=== PATIENT | female | born 1950 | race Caucasian/White ===

== ENCOUNTER 2022-06-02 13:14 | Inpatient (IN) | payer OTHER ==
[~2022-06-02 13:14] MED LIST: Levofloxacin 750mg IV 750 MG/150 ML BAG IV SCH
--- OUTSIDE RECORDS SUMMARY | 2022-06-02 13:18 | XMS REPORT | Continuity of Care Document ---
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) (disorder) Active Problem 04/28/2022 [facility] Dysphagia Dysphagia Problem Active 2022-04-28 Memoria (disorder) (disorder) 05:05:19 l Active Dank Problem 04/28/2022 [facility] History of History Problem Active 2022-04-28 Memoria - CVA of - CVA 05:05:19 l (context-d (context-d He rmann ependent ependent category) category) Active Problem 04/28/2022 [facility] Hypertensi Problem Active 2022-04-28 Gila kim ve Hypertensi 05:05:19 l disorder, ve Dank systemic disorder, arterial systemic (disorder) arterial (disorder) Active Problem 04/28/2022 [facility] Hyperlipid Problem Active 2022-04-28 Gila lema Hyperlipid 05:05:19 l (disorder) emia Yrn n (disorder) Active Problem 04/28/2022 [facility] Pancreatic Pancreati Problem Active 2022-04-28 Memoria insufficie c 05:05:19 l ncy insufficie Yrn n (disorder) ncy (disorder) Active Problem 04/28/2022 [facility] Stricture Stricture Problem Active 2022-04-28 Memoria of of 05:05:19 l esophagus esophagus Herm lisa (disorder) (disorder) Active Problem 04/28/2022 [facility] Tremor Tremor Problem Active 2022-04-28 Alton alonzo (finding) (finding) 05:05:19 l Active Dank Problem 04/28/2022 [facility] Allergies, Adverse Reactions, Alerts Allergy Allergy Status Severity Reaction(s) Onset Inactive Treating Comm ents Source Name Type Date Date Clinician penicill penicill Active Memori a ins ins l [place] Social History Smoking Status Start Date Stop Date Source Tobacco smoking status [facility] Medications Ordered Filled Start Stop Current Ordering Indication Dosage Frequency Signature Comments Components Source Medication Medication Date Date Medication? Clinician (SIG) Name Name primidone 2021-07 Yes 50 mg = 1 Mem oria 50 mg oral 0-26 tab, PO, l tablet 16:39: Bedtime, # Millie nn 00 90 tab, 1 Refill(s), Pharmacy: [facility] ([facility]), 165.1, cm, 04/25/22 11:19:00 CDT, Height, 89.545, kg, 04/25/22 11:19:00 CDT, Weight Zenpep Yes 1 cap, PO, Memor ia 10,000 9-14 TID, 0 l units-32,00 18:45: Refill(s) H ermann 0 00 units-42,00 0 units oral delayed release capsule gabapentin Yes = 1 cap, Mem oria 300 mg oral 4-28 PO, BID, # l capsule 13:36: 180 Dank 00 unknown unit, 3 Refill(s), Pharmacy: [facility], 165.1, cm, 03/30/20 8:40:00 CDT, Height, 93.636, kg, 03/30/20 8:40:00 CDT, Weight gabapentin Yes 300 mg = 1 M emoria 300 MG Oral 9-10 cap, PO, l Capsule 13:34: BID, # 180 Herm lisa 00 cap, 2 Refill(s), Pharmacy: [facility], 165.1, cm, 02/17/20 9:12:00 CDT, Height, 93.182, kg, 02/17/20 9:12:00 CDT, Weight Lorazepam 2019- Yes See Memoria 0.5 MG Oral 8-19 Instructio l Tablet 15:03: ns, Take 1 Millie nn [Ativan] 00 tab po 1 hour prior to MRI, may repeat q 15 min. if still anxious, # 5 tab, 0 Refill(s), Pharmacy: [id number], 165.1, cm, 02/17/20 9:12:00 CDT, Height, 93.182, kg, 02/17/20 9:12:00 CDT, Weight gabapentin 2018-07 Yes 300 mg = 1 M emoria 300 MG Oral 1-20 cap, PO, l Capsule 15:34: BID, # 180 Herm lisa 59 cap, 2 Refill(s), Pharmacy: [place] [id number] gabapentin 2018-0 Yes 300 mg = 1 M emoria 300 MG Oral 5-22 cap, PO, l Capsule 14:37: BID, # 180 Herm lisa 24 cap, 2 Refill(s), Pharmacy: [place] [id number] aspirin 81 2019-0 Yes 81 mg = 1 Me moria mg tablet, 3-19 tab, PO, l enteric 14:48: Daily, # Yrn n coated 00 90 tab, 3 Refill(s) meloxicam 2018-0 Yes 15 mg = 1 Mem oria 15 mg oral 2-14 tab, PO, l tablet 20:13: Daily, 0 Dank 00 Refill(s) oxybutynin 2018-0 Yes 5 mg = 1 Mem oria 5 mg oral 2-14 tab, PO, l tablet 20:13: TID, 0 Dank 00 Refill(s) simvastatin 2018-0 Yes 40 mg = 1 M emoria 40 mg oral 2-14 tab, PO, l tablet 20:13: Bedtime, 0 Millie nn 00 Refill(s) Vital Signs Vital Name Observation Time Observation Value Comments Source Height 2022-04-25 16:11:00 5 [ft_i] [facility] [place] Weight 2022-04-25 16:11:00 [facility] [place] BMI Calculated 2022-04-25 16:11:00 Memori al Dank Systolic (mm Hg) 2022-04-25 16:11:00 Alton rial [place] Diastolic (mm Hg) 2022-04-25 16:11:00 Mem orial Dank Heart Rate 2022-04-25 16:11:00 [facility] [place] Height 2022-03-14 18:23:00 165.1 cm [facility] [place] Weight 2022-03-14 18:23:00 [facility] [place] BMI Calculated 2022-03-14 18:23:00 Memori al Dank Systolic (mm Hg) 2022-03-14 18:23:00 Alton rial Dank Diastolic (mm Hg) 2022-03-14 18:23:00 Mem orial Dank Heart Rate 2022-03-14 18:23:00 [facility] [place] Respitory Rate 2022-03-14 18:23:00 Memori al [place] Systolic (mm Hg) 2020-03-30 13:40:00 Alton rial [place] Diastolic (mm Hg) 2020-03-30 13:40:00 Mem orial Dank Heart Rate 2020-03-30 13:40:00 [facility] [place] Respitory Rate 2020-03-30 13:40:00 Memori al [place] Height 2020-03-30 13:40:00 165.1 cm [facility] [place] Weight 2020-03-30 13:40:00 [facility] [place] BMI Calculated 2020-03-30 13:40:00 Memori al [place] Systolic (mm Hg) 2020-02-17 13:47:00 Alton rial [place] Diastolic (mm Hg) 2020-02-17 13:47:00 Mem orial Dank Heart Rate 2020-02-17 13:47:00 [facility] [place] Height 2020-02-17 13:47:00 165.1 cm [facility] [place] Weight 2020-02-17 13:47:00 [facility] [place] BMI Calculated 2020-02-17 13:47:00 Memori al Dank Systolic (mm Hg) 2019-05-20 15:07:00 Alton rial Dank Diastolic (mm Hg) 2019-05-20 15:07:00 Mem orial Dank Heart Rate 2019-05-20 15:07:00 [facility] [place] Respitory Rate 2019-05-20 15:07:00 Memori al [place] Height 2019-05-20 15:07:00 165.1 cm [facility] [place] Weight 2019-05-20 15:07:00 [facility] Dank BMI Calculated 2019-05-20 15:07:00 Memori al Dank Weight 2018-11-19 14:22:00 [facility] [place] BMI Calculated 2018-11-19 14:22:00 Memori al Dank Height 2018-11-19 14:22:00 165.1 cm [facility] [place] Systolic (mm Hg) 2018-11-19 14:22:00 Alton rial Dank Diastolic (mm Hg) 2018-11-19 14:22:00 Mem orial [place] Respitory Rate 2018-11-19 14:22:00 Memori al [place] Heart Rate 2018-11-19 14:22:00 [facility] [place] Procedures This patient has no known procedures. Encounters Start End Encounter Admission Attending Care Care Encounter Source Date/Time Date/Time Type Type Clinicians Facility Department ID 2022-06-07 2022-06-07 Outpatient STAR GRAVES [id number] Memoria 11:00:00 11:00:[address] [facility] 2022-04-25 2022-04-26 Outpatient nullFlavo [facility] [id number] Memoria 16:30:00 04:59:59 [facility]22-04-[facility] 2022-04-25 [id number] 11:30:00 23:59:59 Storm 09 Thor 2022-04-25 2022-04-25 Outpatient STAR GRAVES [id number] Memoria 11:30:00 11:30:[address] [facility] 2022-03-26 2022-03-27 Outpatient nullFlavo [facility] [id number] Memoria 15:06:00 04:59:00 r Dank 00 l [facility] 2022-03-26 2022-03-26 Outpatient CHARLI [facility] [id number] [id number] 10:06:00 23:59:00 STORM 2022-03-26 2022-03-26 Outpatient Charli [facility] [id number] 10:06:00 23:59:00 Storm 00 Thor 2022-03-14 2022-03-15 Outpatient nullFlavo MNA [id number] Memoria 19:15:00 04:59:59 r Neurology 08 l Sumner Dank 2022-03-14 2022-03-14 Outpatient BRIDGETTE AugustinSCHER MHMISCHER [id number] 14:15:00 23:59:59 Storm 08 Thor 2022-03-14 2022-03-14 Outpatient MHIE MHIE [id number] Memoria 14:15:00 14:15:00 08 keerthi Dank 2020-07-05 2020-07-05 Ambulatory nullFlavo MNA [id number] Memoria 15:15:00 15:15:00 Pre-Reg r Neurology 07 l Mike Weems 2020-07-05 2020-07-05 Outpatient MHIE JACOBIE [id number] Memoria 09:15:00 09:15:00 07 keerthi Dank 2020-07-05 2020-07-05 Outpatient BRIDGETTE AugustinSCHER MHMISCHER [id number] 09:15:00 09:15:00 Storm 07 Thor 2020-03-30 2020-03-31 Outpatient nullFlavo MNA [id number] Memoria 14:00:00 04:59:59 r Neurology 06 l Mike Weems 2020-03-30 2020-03-30 Outpatient BRIDGETTE AugustinSCHER MHMISCHER [id number] 09:00:00 23:59:59 Storm 06 Thor 2020-03-30 2020-03-30 Outpatient MHIE MHIE [id number] Memoria 09:00:00 09:00:00 06 keerthi Dank 2020-02-17 2020-02-18 Outpatient nullFlavo MNA [id number] Memoria 14:00:00 04:59:59 r Neurology 05 l Mike Weems 2020-02-17 2020-02-17 Outpatient BRIDGETTE AugustinSCHER MHMISCHER [id number] 09:00:00 23:59:59 Storm 05 Thor 2020-02-17 2020-02-17 Ambulatory nullFlavo MNA [id number] Memoria 14:00:00 14:00:00 Pre-Reg r Neurology 04 keerthi Sumner Dank 2020-02-17 2020-02-17 Outpatient MHIE MHIE [id number] Memoria 09:00:00 09:00:00 04 keerthi Dank 2020-02-17 2020-02-17 Outpatient MHIE MHIE [id number] Memoria 09:00:00 09:00:00 05 keerthi Weems 2020-02-17 2020-02-17 Outpatient Charli MHMISCHER MHMISCHER [id number] 09:00:00 09:00:00 Storm 04 Thor 2019-05-20 2019-05-21 Outpatient nullFlavo MNA [id number] Memoria 15:15:00 05:59:59 r Neurology 03 keerthi Mike Weems 2019-05-20 2019-05-20 Outpatient Charli MISCHER MHMISCHER [id number] 09:15:00 23:59:59 Storm 03 Thor 2019-05-20 2019-05-20 Outpatient MHIE MHIE [id number] Memoria 09:15:00 09:15:00 03 keerthi Weems 2018-11-19 2018-11-20 Outpatient nullFlavo MNA [id number] Memoria 14:30:00 04:59:59 r Neurology 02 keerthi Mike Weems 2018-11-19 2018-11-19 Outpatient Charli MHMISCHER MHMISCHER [id number] 09:30:00 23:59:59 Storm 02 Thor 2018-11-19 2018-11-19 Outpatient MHIE MHIE [id number] Memoria 09:30:00 09:30:00 02 keerthi Weems 2018-09-16 2018-09-16 Outpatient MHIE MHIE [id number] Memoria 10:00:00 10:00:00 01 keerthi Weems 2017-08-14 2017-08-14 Outpatient MHIE MHIE [id number] Memoria 14:30:00 14:30:00 00 keerthi Weems Results This patient has no known results.
[2022-06-02] MEDS ORDERED: NA CHLORIDE 0.9% 500 ML ONE ×2 (14:46→17:52)
[2022-06-02] MEDS ORDERED: ACETAMINOPHEN 325 MG TABLET ONE (14:46)
[2022-06-02 14:54] LABS: Protime INR 1.21
[2022-06-02 14:58] LABS: Absolute Lymphocytes (CBC) 0.7 K/uL (0.7-4.9); Hematocrit 40.3 % (36.0-45.0); Lymphocytes % 4.6 % (15.3-44.8); MCV 84.6 fL (80-100); MPV 7.6 fL (7.6-11.3); RBC Red Blood Cell Count 4.76 M/uL (3.86-4.86)
[2022-06-02 15:06] LABS: Bilirubin Direct 0.3 mg/dL (0-0.2); Bilirubin Total 0.7 mg/dL (0.2-1.0); Magnesium 2.2 mg/dL (1.8-2.4); Potassium 3.1 mmol/L (3.5-5.1); Protein, Total 7.5 g/dL (6.4-8.2); Troponin High Sensitivity 53.2 pg/mL (<58.9)
--- NOTE | 2022-06-02 15:48 | RAD REPORT ---
EXAM DESCRIPTION: Paul Single View06/02/2022 3:12 pm CLINICAL HISTORY: Shortness of breath COMPARISON: 2014 FINDINGS: The lungs appear clear of acute infiltrate. The heart is normal size IMPRESSION: No acute abnormalities displayed
[2022-06-02 18:04] LABS: Urine Blood 2+ (Negative); Urine Glucose Negative (Negative); Urine Protein 2+ (Negative); Urine Specific Gravity 1.025 (1.005-1.030)
[2022-06-02 18:44] LABS: SARS-COV-2 RT PCR NEGATIVE (NEGATIVE)
[2022-06-02] MEDS ORDERED: Levofloxacin 750mg IV 750 MG/150 ML BAG IV ONE ×2 (18:49→21:00)
[2022-06-02] MEDS ORDERED: NA CHLORIDE 0.9% 2,000 ML ONE (18:49)
--- NOTE | 2022-06-02 19:15 | P.HP ---
Certification for Inpatient Patient admitted to: Observation With expected LOS: <2 Midnights Patient will require the following post-hospital care: None Practitioner: I am a practitioner with admitting privileges, knowledge of patient current condition, hospital course, and medical plan of care. Services: Services provided to patient in accordance with Admission requirements found in Title 42 Section 412.3 of the Code of Federal Regulations Patient History Date of Service: 06/02/22 Primary Care Provider: Mac Reason for admission: UTI, Dehydration History of Present Illness: Patient is a 71 year old female with past medical history of hypertension and hyperlipidemia who presented to the ED with complaints of nausea, vomiting, and back pain. Patient reports that her symptoms began about 3 days ago, and she ended up having a syncopal episode last night. She states that her blood pressure does run low chronically but gets lower when she is sick. Her labs are significant for potassium 3.1, BUN 27, WBC 15 with left shift, urine positive for UTI. COVID/flu negative. She was initially febrile and tachycardic, but have since resolved. She was given levaquin, tylenol, and fluids in the ED. Patient is admitted for further management. Allergies Penicillins Allergy (Verified 02/07/15 02:44) Anaphylaxis Home medications list reviewed: Yes Home Medications: Duloxetine HCl 60 mg PO DAILY 02/07/15 Gabapentin [Neurontin] 600 mg PO TID 02/07/15 Lisinopril [Zestril] 10 mg PO DAILY #30 tablet 02/07/15 Oxybutynin Chloride [Ditropan*] 5 mg PO BID 02/07/15 Simvastatin [Zocor*] 40 mg PO BEDTIME 02/07/15 - Past Medical/Surgical History Diabetic: No -: HTN -: HIGH CHOLESTEROL -: NERVE DAMAGE R FOOT -: HYSTERECTOMY -: JO EYE SX -: JO KNEE SX -: TONSILLECTOMY Psychosocial/ Personal History: Patient lives at home. She has a daughter. - Family History Mother -: Stroke, Other (see notes) Notes: Parkinson's - Social History Smoking Status: Never smoker Alcohol use: Yes CD- Drugs: No Caffeine use: Yes Place of Residence: Home Review of Systems Gastrointestinal: Nausea, Vomiting Musculoskeletal: Back Pain Physical Examination - Vital Signs Temperature: 101.6 F Blood Pressure: 94/51 Pulse: 84 Respirations: 16 Pulse Ox (%): 100 (room air) - Physical Exam General: Alert, In no apparent distress HEENT: Atraumatic, PERRLA, EOMI, Sclerae nonicteric Neck: Supple, 2+ carotid pulse no bruit, No LAD, Without JVD or thyroid abnormality Respiratory: Clear to auscultation bilaterally, Normal air movement Cardiovascular: Regular rate/rhythm, Normal S1 S2 Gastrointestinal: Normal bowel sounds, No tenderness Musculoskeletal: No tenderness Integumentary: No rashes Neurological: Normal speech, Normal strength at 5/5 x4 extr, Normal tone, Normal affect - Studies Laboratory Data (last 24 hrs) 06/02/22 14:29: PT 13.3 H, INR 1.21 06/02/22 14:29: WBC 15.30 H, Hgb 13.5, Hct 40.3, Plt Count 273 06/02/22 14:29: Sodium 138, Potassium 3.1 L, BUN 27 H, Creatinine 1.13, Glucose 142 H, Magnesium 2.2, Total Bilirubin 0.7, AST 22, ALT 25, Alkaline Phosphatase 112 Assessment and Plan - Problems (Diagnosis) (1) UTI (urinary tract infection) Current Visit: Yes Status: Acute Qualifiers: Urinary tract infection type: acute cystitis Hematuria presence: with hematuria Qualified Code(s): N30.01 - Acute cystitis with hematuria (2) Dehydration Current Visit: Yes Status: Acute (3) Sepsis Current Visit: Yes Status: Acute Qualifiers: Sepsis type: sepsis due to unspecified organism Sepsis acute organ dysfunction status: without acute organ dysfunction Qualified Code(s): A41.9 - Sepsis, unspecified organism (4) Hypokalemia Current Visit: Yes Status: Acute - Plan Continue levaquin for UTI. Follow urine culture. Patient is meeting sepsis criteria with fever, tachycardia, leukocytosis. Blood cultures obtained. Lactate negative. Received sepsis fluid bolus. BP has been borderline. Monitor closely. Will continue maintenance IV fluids. Symptoms could also be secondary to a viral gastroenteritis with hypokalemia. Patient denies urinary symptoms. Supportive measures with IV hydration, anti emetics, analgesics. Monitor and replete electrolytes per protocol. Reconcile and continue home medications. VTE prophylaxis . Full code. Patient's daughter, Tessie, can be reached at [phone] Discharge Plan: Home Plan to discharge in: 24 Hours - Advance Directives Does patient have a Living Will: No Does patient have a Durable POA for Healthcare: No - Code Status/Comfort Care Code Status Assessed: Yes Code Status: Full Code Physician Review: Patient Assessed, Agree with Above Assessment and Plan Critical Care: No Time Spent Managing Pts Care (In Minutes): 50
--- NOTE | 2022-06-02 19:35 | EDPHYS ---
Physician Documentation [facility] Name: Monica Burns Age: 71 yrs Sex: Female : 1950 Arrival Date: 06/02/2022 Time: 13:17 Bed 2 Private MD: JESUS Physician Feryn Mead HPI: 06/02 13:54 This 71 yrs old Female presents to ER via Ambulatory with complaints of Flu Symptoms. [facility] 19:52 This is a 71-year-old female with history of hyperlipidemia and hypertension the jmm presents emerged part with complaints of 3 days of vomiting and diarrhea. Daughter states that the patient had a syncopal episode last night. Patient denies shortness of breath, cough, sore throat.. Historical: - Allergies: 13:54 PENICILLINS; kb3 - PMHx: 13:54 Hyperlipidemia; Hypertension; kb3 - Immunization history:: Adult Immunizations up to date, Client reports receiving the 2nd dose of the Covid vaccine. - Social history:: Smoking status: Patient denies any tobacco usage or history of. ROS: 19:52 Constitutional: Positive for body aches, chills, fever. jmm 19:52 Respiratory: Negative for cough, shortness of breath. 19:52 Abdomen/GI: Positive for nausea and vomiting, diarrhea. 19:52 All other systems are negative. Exam: 19:52 Constitutional: This is a well developed, well nourished patient who is awake, alert, jmm and in no acute distress. Head/Face: atraumatic. Eyes: EOMI, no conjunctival erythema appreciated ENT: Moist Mucus Membranes Neck: Trachea midline, Supple Chest/axilla: Normal chest wall appearance and motion. Cardiovascular: Regular rate and rhythm. No edema appreciated Respiratory: Normal respirations, no respiratory distress appreciated Abdomen/GI: Non distended Back: Normal ROM Skin: General appearance color normal MS/ Extremity: Moves all extremities, no obvious deformities appreciated, no edema noted to the lower extremities Neuro: Awake and alert Psych: Behavior is normal, Mood is normal, Patient is cooperative and pleasant Vital Signs: 13:52 BP 104 / 75; Pulse 120; Resp 20; Temp 101.6; Pulse Ox 97% ; Weight 83.91 kg; Height 5 kb3 ft. 5 in. (165.10 cm); Pain 8/10; 14:55 BP 104 / 55; Pulse 83; Resp 18 S; Pulse Ox 97% on R/A; Pain 0/10; kc6 16:16 BP 91 / 54; Pulse 88; Resp 18 S; Pulse Ox 95% on R/A; kc6 17:16 BP 82 / 45; Pulse 82; Resp 16 S; Pulse Ox 92% on R/A; kc6 19:16 BP 94 / 51; Pulse 84; Pulse Ox 100% ; ll3 20:31 BP 94 / 62; Pulse 87; Resp 16 S; Pulse Ox 100% on R/A; as6 20:33 Temp 98.0(O); as6 13:52 Body Mass Index 30.79 (83.91 kg, 165.10 cm) kb3 MDM: 13:56 Patient medically screened. m 13:57 Patient medically screened. [facility] 18:10 Data reviewed: vital signs, nurses notes. Counseling: I had a detailed discussion with [facility] the patient and/or guardian regarding: the historical points, exam findings, and any diagnostic results supporting the discharge/admit diagnosis. ED course: A) Source Urine B) Elevated Temp, Elevated WBC C) SBP < 90. Meets criteria for Sever sepsis with septic shock. 19:33 Counseling: I had a detailed discussion with the patient and/or guardian regarding: lab [facility] results, radiology results, the need for further work-up and treatment in the hospital. 19:43 ED course: Sepsis reassessment complete. [facility] 06/02 13:54 Order name: Basic Metabolic Panel; Complete Time: 15:10 [facility] 06/02 13:54 Order name: CBC with Diff; Complete Time: 15:14 [facility] 06/02 13:54 Order name: LFT's; Complete Time: 15:10 [facility] 06/02 13:54 Order name: Magnesium; Complete Time: 15:10 [facility] 06/02 13:54 Order name: NT PRO-BNP; Complete Time: 15:10 [facility] 06/02 13:54 Order name: PT-INR; Complete Time: 14:58 [facility] 06/02 13:54 Order name: Troponin HS; Complete Time: 15:10 [facility] 06/02 13:54 Order name: XRAY Chest (1 view); Complete Time: 15:50 [facility] 06/02 13:54 Order name: COVID-19/FLU A+B; Complete Time: 18:51 [facility] 06/02 14:16 Order name: Lactate w/ 2H reflex if indic.; Complete Time: 15:10 [facility] 06/02 14:16 Order name: Blood Culture Adult (2) [facility] 06/02 18:04 Order name: Urine Dipstick-Ancillary; Complete Time: 18:08 [facility] 06/02 18:08 Order name: Urine Microscopic Only [facility] 06/02 18:09 Order name: Urine Culture [facility] 06/02 13:54 Order name: EKG; Complete Time: 13:55 [facility] 06/02 13:54 Order name: Cardiac monitoring; Complete Time: 14:35 [facility] 06/02 13:54 Order name: EKG - Nurse/Tech; Complete Time: 14:42 [facility] 06/02 13:54 Order name: IV Saline Lock; Complete Time: 14:35 [facility] 06/02 13:54 Order name: Labs collected and sent; Complete Time: 14:35 [facility] 06/02 13:54 Order name: O2 Per Protocol; Complete Time: 14:35 [facility] 06/02 13:54 Order name: O2 Sat Monitoring; Complete Time: 14:35 [facility] 06/02 13:54 Order name: Urine Dipstick-Ancillary (obtain specimen); Complete Time: 18:04 [facility] 06/02 17:31 Order name: Misc. Order: need urine please; Complete Time: 18:04 [facility] Administered Medications: 14:51 Drug: NS 0.9% 500 ml Route: IV; Rate: bolus; Site: right antecubital; kc6 15:51 Follow up: Response: No adverse reaction; IV Status: Completed infusion; IV Intake: kc6 500ml 14:51 Drug: Acetaminophen 650 mg Route: PO; kc6 15:51 Follow up: Response: No adverse reaction kc6 17:15 Not Given (not availablee): Pancrelipase 16,000-60,000-60,000 unit 1000 units PO once; kc6 do not exceed 10,000 units/kg of lipase per 24 hrs ; do NOT mix in formula/breast milk 18:04 Drug: NS 0.9% 500 ml Route: IV; Rate: bolus; Site: left antecubital; kc6 19:00 Drug: LevaQUIN (levofloxacin) 750 mg Volume: 150 ml; Route: IVPB; Infused Over: 90 as6 mins; Site: left antecubital; 19:00 Drug: NS 0.9% 2000 ml Route: IV; Rate: 1 bolus; Site: left antecubital; kc6 Disposition: 06/03 08:13 Co-signature as Attending Physician, Ferny Mead MD I agree with the assessment and vernell plan of care. Disposition Summary: 06/02/22 19:34 Hospitalization Ordered Hospitalization Status: Inpatient Admission [facility] Provider: Marcus Pang Location: Telemetry/MedSur (Inpatient) [facility] Condition: Stable jmm Problem: new jmm Symptoms: have improved jmm Bed/Room Type: Standard [facility] Room Assignment: 203(06/02/22 19:44) Diagnosis - Severe sepsis with septic shock jmm - Urinary tract infection jmm - Dehydration jm Forms: - Medication Reconciliation Form jmm - SBAR form jm Signatures: Dispatcher [employer] EDKya Chiang RN RN Freny Ashton MD MD cha Mickail, Joel, PA PA [facility] Sánchez Avila RN RN as6 Honey Barriga RN RN kc6 Adriana Rascon RN RN kb3 Corrections: (The following items were deleted from the chart) 06/02 19:44 19:34 [facility]
--- NOTE | 2022-06-02 19:35 | ER ---
Nurse's Notes [facility] Name: Monica Burns Age: 71 yrs Sex: Female : 1950 Arrival Date: 06/02/2022 Time: 13:17 Bed 2 Private MD: Diagnosis: Severe sepsis with septic shock;Urinary tract infection;Dehydration Presentation: 06/02 13:52 Chief complaint: Patient states: body aches, fever, vomiting, diarrhea x3 days. kb3 Coronavirus screen: Vaccine status: Patient reports receiving the 2nd dose of the covid vaccine. Client denies travel out of the [place] in the last 14 days. Ebola Screen: Patient negative for fever greater than or equal to 101.5 degrees Fahrenheit, and additional compatible Ebola Virus Disease symptoms Patient denies exposure to infectious person. Patient denies travel to an Ebola-affected area in the 21 days before illness onset. Initial Sepsis Screen: Does the patient meet any 2 criteria? No. Patient's initial sepsis screen is negative. Does the patient have a suspected source of infection? No. Patient's initial sepsis screen is negative. Risk Assessment: Do you want to hurt yourself or someone else? Patient reports no desire to harm self or others. Onset of symptoms was May 30, 2022. 13:52 Method Of Arrival: Ambulatory 3 13:52 Acuity: WESTLEY 3 kb3 Triage Assessment: 13:54 General: Appears in no apparent distress. Behavior is calm, cooperative. Pain: kb3 Complains of pain in head, chest, right arm, left arm, right leg and left leg Pain does not radiate. Pain currently is 8 out of 10 on a pain scale. Quality of pain is described as aching. Historical: - Allergies: 13:54 PENICILLINS; kb3 - PMHx: 13:54 Hyperlipidemia; Hypertension; kb3 - Immunization history:: Adult Immunizations up to date, Client reports receiving the 2nd dose of the Covid vaccine. - Social history:: Smoking status: Patient denies any tobacco usage or history of. Screenin:56 Abuse screen: Denies threats or abuse. Denies injuries from another. Nutritional kc6 screening: No deficits noted. Tuberculosis screening: No symptoms or risk factors identified. Fall Risk Fall in past 12 months (25 points). No secondary diagnosis (0 pts). IV access (20 points). Ambulatory Aid- None/Bed Rest/Nurse Assist (0 pts). Gait- Normal/Bed Rest/Wheelchair (0 pts) Mental Status- Oriented to own ability (0 pts). Total Rondon Fall Scale indicates High Risk Score (45 or more points). Fall prevention measures have been instituted. Side Rails Up X 2 Placed Close to Nursing Station Frequent Obs/Assessments Occuring Family Present and informed to notify staff if the need to leave the bedside As available patient and family educated on Fall Prevention Program and Strategies. Assessment: 14:52 General: Appears in no apparent distress. comfortable, Behavior is calm, cooperative, kc6 appropriate for age. Pain: Denies pain. Neuro: Higgins Agitation-Sedation Scale (RASS): 0 - Alert and Calm Level of Consciousness is awake, alert, obeys commands, Oriented to person, place, time, situation, Appropriate for age. Cardiovascular: Heart tones S1 S2 present Capillary refill < 3 seconds. Respiratory: Airway is patent Trachea midline Respiratory effort is even, unlabored, Respiratory pattern is regular, symmetrical, Breath sounds are clear bilaterally. GI: No signs and/or symptoms were reported involving the gastrointestinal system. : No signs and/or symptoms were reported regarding the genitourinary system. EENT: No signs and/or symptoms were reported regarding the EENT system. Derm: No signs and/or symptoms reported regarding the dermatologic system. Skin is intact, Skin is pink, warm \T\ dry. Musculoskeletal: No signs and/or symptoms reported regarding the musculoskeletal system. Circulation, motion, and sensation intact. Capillary refill < 3 seconds, Range of motion: intact in all extremities. 15:52 Reassessment: Patient appears in no apparent distress at this time. No changes from kc6 previously documented assessment. Patient and/or family updated on plan of care and expected duration. Pain level reassessed. Patient is alert, oriented x 3, equal unlabored respirations, skin warm/dry/pink. 16:52 Reassessment: Patient appears in no apparent distress at this time. No changes from kc6 previously documented assessment. Patient and/or family updated on plan of care and expected duration. Pain level reassessed. Patient is alert, oriented x 3, equal unlabored respirations, skin warm/dry/pink. 17:16 Reassessment: provider notified of low blood pressure. order received for NS bolus, see jeradd3 MAR. Vital Signs: 13:52 BP 104 / 75; Pulse 120; Resp 20; Temp 101.6; Pulse Ox 97% ; Weight 83.91 kg; Height 5 kb3 ft. 5 in. (165.10 cm); Pain 8/10; 14:55 BP 104 / 55; Pulse 83; Resp 18 S; Pulse Ox 97% on R/A; Pain 0/10; kc6 16:16 BP 91 / 54; Pulse 88; Resp 18 S; Pulse Ox 95% on R/A; kc6 17:16 BP 82 / 45; Pulse 82; Resp 16 S; Pulse Ox 92% on R/A; kc6 19:16 BP 94 / 51; Pulse 84; Pulse Ox 100% ; ll3 20:31 BP 94 / 62; Pulse 87; Resp 16 S; Pulse Ox 100% on R/A; as6 20:33 Temp 98.0(O); as6 13:52 Body Mass Index 30.79 (83.91 kg, 165.10 cm) kb3 ED Course: 13:17 Patient arrived in ED. rg4 13:25 Malik Cyr PA is PHCP. jmm 13:25 Ferny Mead MD is Attending Physician. jmm 13:54 Triage completed. kb3 13:54 Arm band placed on right wrist. kb3 14:12 Honey Barriga, FLACO is Primary Nurse. kc6 14:35 Inserted saline lock: 20 gauge in left antecubital area, using aseptic technique. Blood jd3 collected. Inserted saline lock: 22 gauge in right antecubital area, using aseptic technique. Blood collected. placed by [facility]. 15:14 XRAY Chest (1 view) In Process Unspecified. EDMS 19:33 Marcus Pang is Hospitalizing Provider. jmm 20:31 Placed in gown. Bed in low position. Call light in reach. Side rails up X2. as6 20:31 No provider procedures requiring assistance completed. Patient admitted, IV remains in as6 place. 20:39 Primary Nurse role handed off by Honey Barriga, FLACO mw2 Administered Medications: 14:51 Drug: NS 0.9% 500 ml Route: IV; Rate: bolus; Site: right antecubital; kc6 15:51 Follow up: Response: No adverse reaction; IV Status: Completed infusion; IV Intake: kc6 500ml 14:51 Drug: Acetaminophen 650 mg Route: PO; kc6 15:51 Follow up: Response: No adverse reaction kc6 17:15 Not Given (not availablee): Pancrelipase 16,000-60,000-60,000 unit 1000 units PO once; kc6 do not exceed 10,000 units/kg of lipase per 24 hrs ; do NOT mix in formula/breast milk 18:04 Drug: NS 0.9% 500 ml Route: IV; Rate: bolus; Site: left antecubital; kc6 19:00 Drug: LevaQUIN (levofloxacin) 750 mg Volume: 150 ml; Route: IVPB; Infused Over: 90 as6 mins; Site: left antecubital; 19:00 Drug: NS 0.9% 2000 ml Route: IV; Rate: 1 bolus; Site: left antecubital; kc6 Medication: 20:31 VIS not applicable for this client. as6 Intake: 15:51 IV: 500ml; Total: 500ml. kc6 Outcome: 19:34 Decision to Hospitalize by Provider. dano 20:31 Condition: stable as6 20:31 Instructed on the need for admit. 20:49 Admitted to Med/surg accompanied by nurse, via stretcher, room 203, with chart, Report ll3 called to FLACO Rosenthal 21:11 Patient left the ED. tw5 Signatures: Dispatcher [employer] EDMS Malik Cyr PA PA jmm Garcia, Rubi rg4 Rodney Trimble RN RN Nikki Crane 2 Cristine Walter tw5 Sánchez Avila RN RN as6 Vaishali Salazar RN RN ll3 Honey Barriga RN RN kc6 Adriana Rascon, RN RN kb3
[2022-06-02] MEDS ORDERED: ONDANSETRON 4 MG/2 ML VIAL IV PRN (20:55)
[2022-06-02] MEDS: NS KCL 20MEQ 20 MEQ/1,000 ML BAG IV SCH (21:47)
[2022-06-02] MEDS: ACETAMINOPHEN 325 MG TABLET PO PRN (21:47)
[2022-06-02 23:58] LABS: Specific Gravity 1.017 (1.005-1.030); Urine Bacteria <20 /HPF (<20); Urine Bilirubin NEGATIVE (Negative); Urine Blood 2+ (Negative); Urine Clarity Turbid (Clear); Urine Color Yellow (Yellow); Urine Glucose NEGATIVE (Negative); Urine Mucus 2+ /HPF (None Seen); Urine Protein 2+ (Negative); Urine Urobilinogen Normal (Normal); Urine WBC Clump Occasional /HPF (None Seen); Urine pH 5.5 (5.0-7.0)
[2022-06-03 00:04] VITALS: BMI 30.7
[2022-06-03 06:16] LABS: Absolute Lymphocytes (CBC) 0.8 K/uL (0.7-4.9); Hematocrit 33.5 % (36.0-45.0); Lymphocytes % 5.8 % (15.3-44.8); MCV 85.3 fL (80-100); RBC Red Blood Cell Count 3.93 M/uL (3.86-4.86)
[2022-06-03 06:36] LABS: Magnesium 2.1 mg/dL (1.8-2.4); Phosphorus 2.4 mg/dL (2.5-4.9); Potassium 3.4 mmol/L (3.5-5.1); Thyroid Stimulating Hormone 0.313 uIU/mL (0.360-3.740)
[2022-06-03] MEDS: ACETAMINOPHEN 325 MG TABLET PO PRN ×3 (06:50→20:30)
[2022-06-03] MEDS ORDERED: Levofloxacin 750mg IV 750 MG/150 ML BAG IV SCH (07:00)
[2022-06-03] MEDS ORDERED: POTASSIUM CL SA 10 MEQ TAB PO ONE (09:00)
[2022-06-03] MEDS: POTASS/SODIUM PHOSPHATE 1 PKT POWD.PACK PO SCH ×3 (09:56→11:56)
[2022-06-03] MEDS: NS KCL 20MEQ 20 MEQ/1,000 ML BAG IV SCH (10:15)
--- NOTE | 2022-06-03 16:45 | P.PN ---
Subjective Date of Service: 06/03/22 Primary Care Provider: Mac Chief Complaint: UTI, Dehydration Patient states she feels much better and wants to go home. She has had no fever today. She states her back pain is much better. Physical Examination - Vital Signs Temperature: 97.4 F Blood Pressure: 114/55 Pulse: 86 Respirations: 16 Pulse Ox (%): 98 Assessment And Plan - Current Problems (Diagnosis) (1) Acute pyelonephritis Current Visit: Yes Status: Acute (2) Gram-negative bacteremia Current Visit: Yes Status: Acute (3) Sepsis Current Visit: Yes Status: Acute Qualifiers: Sepsis type: sepsis due to unspecified organism Sepsis acute organ dysfunction status: without acute organ dysfunction Qualified Code(s): A41.9 - Sepsis, unspecified organism - Plan Blood culture preliminary result: 1 blood culture bottle showing gram-negative rods. Patient is clinically improved. Continue IV Levaquin. Follow urine culture and blood cultures. Repeat blood culture to document bacteremia clearance. Continue supportive measures-IV fluid. Diet as tolerated. Pain management as needed.
[2022-06-03] MEDS: ATORVASTATIN 20 MG TAB PO SCH (20:31)
[2022-06-03] MEDS: OXYBUTYNIN CHLORIDE 5 MG TAB PO SCH (20:31)
[2022-06-03] MEDS: GABAPENTIN 300 MG CAP PO SCH (20:31)
[2022-06-03] MEDS: ZENPEP PO SCH (20:32)
[2022-06-03] MEDS ORDERED: ONDANSETRON 4 MG (ODT) TAB ONE (20:40)
[2022-06-03] MEDS: ONDANSETRON 4 MG (ODT) TAB PO PRN (20:41)
[2022-06-04] MEDS: NS KCL 20MEQ 20 MEQ/1,000 ML BAG IV SCH ×3 (05:01→20:43)
[2022-06-04] MEDS: Levofloxacin 750mg IV 750 MG/150 ML BAG IV SCH (05:02)
[2022-06-04] MEDS: ACETAMINOPHEN 325 MG TABLET PO PRN (06:47)
[2022-06-04 07:19] LABS: Phosphorus 2.1 mg/dL (2.5-4.9)
[2022-06-04 07:27] LABS: Magnesium 1.8 mg/dL (1.8-2.4); Potassium 3.5 mmol/L (3.5-5.1)
[2022-06-04] MEDS ORDERED: VIT D3 PO SCH (09:00)
[2022-06-04] MEDS: PANTOPRAZOLE 40MG TABLET PO SCH (09:00)
[2022-06-04] MEDS: ZENPEP PO SCH ×3 (09:00→21:00)
[2022-06-04] MEDS: IRON SUPPLEMENT PO SCH (09:00)
[2022-06-04] MEDS: OXYBUTYNIN CHLORIDE 5 MG TAB PO SCH ×3 (09:00→21:00)
[2022-06-04] MEDS: ASPIRIN EC 81 MG TAB PO SCH (09:00)
[2022-06-04] MEDS: GABAPENTIN 300 MG CAP PO SCH ×2 (09:00→21:00)
[2022-06-04] MEDS ORDERED: MORPHINE 2 MG/ML SYR IV PRN (12:28)
[2022-06-04] MEDS: HYDROCODONE/APAP 5/325 MG TAB PO PRN ×2 (13:00→20:36)
--- NOTE | 2022-06-04 13:34 | P.PN ---
Subjective Date of Service: 06/04/22 Primary Care Provider: Mac Chief Complaint: UTI, Dehydration Patient complaining of back pain, nausea, loss of appetite. No fever since yesterday. Physical Examination - Vital Signs Temperature: 97.3 F Blood Pressure: 105/50 Pulse: 88 Respirations: 16 Pulse Ox (%): 99 - Studies Microbiology Data (last 24 hrs): 06/02/22 23:34 Clean Catch Urine [place] Count - Final <10,000 CFU/ML. 06/02/22 23:34 Clean Catch Urine - Final MIXED DIANA. 06/02/22 14:30 Blood - Blood Blood Culture Gram Stain - Final Assessment And Plan - Current Problems (Diagnosis) (1) Acute pyelonephritis Current Visit: Yes Status: Acute (2) Gram-negative bacteremia Current Visit: Yes Status: Acute (3) Sepsis Current Visit: Yes Status: Acute Qualifiers: Sepsis type: sepsis due to unspecified organism Sepsis acute organ dysfunction status: without acute organ dysfunction Qualified Code(s): A41.9 - Sepsis, unspecified organism - Plan Blood culture: Gram-negative rods. Patient is feeling worse today. Noted severe allergy to penicillin. Urine culture showed mixed growth. Leukocytosis is improving. Continue IV Levaquin. Infectious disease consulted. Follow blood culture Repeat blood culture to document bacteremia clearance is pending Continue supportive measures-IV fluid. Supportive measures-antiemetics and pain management as needed Diet as tolerated.
--- NOTE | 2022-06-04 13:51 | EKG ---
Test Date: 2022-06-02 Test Time: 14:40:28 Pewter Fabricator: JUDD MEASUREMENT RESULTS: Intervals: Rate: 110 NM: 146 QRSD: 88 QT: 312 QTc: 422 [place]: P: 14 NM: 146 QRS: 44 T: 55 INTERPRETIVE STATEMENTS: Sinus tachycardia Otherwise normal ECG Compared to ECG 02/06/2015 21:17:03 Sinus rhythm no longer present Electronically Signed On 06-04-22 13:49:37 FORMING DEPARTMENT SUPERVISOR by Jad Weller
--- NOTE | 2022-06-04 17:26 | CON ---
History Of Present Illness: This is a 71-year-old female. I was consulted for evaluation of gram-ne gative barbara bacteremia. The patient is brought in with altered mental status, as per daughter started having backaches. No burning on urination. On arrival to the hospital, the patient's white count w as 15.3. Her urinalysis showed that the patient has more than 50 WBC and her blood cultures from May growing gram-negative rods. Sensitivity and specificity pending. The patient is currently being treated with Levaquin. Because of difficulty of IV, she has now midline placement. Past Medical History: Includes hypertension, hyperlipidemia, hysterectomy, right foot nerve damage, bilateral eye surgeries, bilateral knee surgeries. Social History: Nonsmoker, nondrinker. Family History: Noncontributory. Medications: Levaquin. See MAR for other medications. Allergies: PENICILLIN. Review of Systems: A 10-point review was performed. Physical Examination: General: This is a 71-year-old female, lying in bed, not in any acute cardiopulmonary distress with daughter by the bedside. Vital Signs: Temperature 98, T-max of 101.6 on June 02, today is 98.1. Pulse 93, respirations 16, blood pressure 96/59. HEENT: Unremarkable. Neck: Supple. Lungs: Clear to auscultation. Heart: S1, S2. Regular. Abdomen: Soft, nontender. Bowel sounds present. Extremities: No edema. Laboratory Data: Shows WBC 13.7 down from 15.3, hemoglobin 11.4, platelets are 234. Chemistry shows BUN of 20, creatinine 0.7, albumin level is 3. Urine shows WBC more than 50. Urine cultures showin g mixed pascual. Blood cultures are growing gram-negative rods. Chest x-ray done on June 02 show s no acute abnormalities. Assessment And Plan: A 71-year-old female, coming in with altered mental status secondary to uroseps is and leukocytosis, now with bacteremia secondary to gram-negative rods. Currently on Levaquin, cli nically doing much better. We will continue current treatment pending culture results. Total course of 14 days antibiotic, can be switched to oral once the patient is stabilized. Cultures are availab le with sensitivity and specificity to Levaquin. Anemia of chronic disease, leukocytosis, moderate p rotein-calorie malnourishment. Continue current treatment. We will follow the patient closely. Thank you, Dr. Pang for consult. SHON/JOANNA Voice ID: [id number] Report ID: [id number]
--- NOTE | 2022-06-04 19:28 | P.PN ---
Date of Service: 06/05/22 Subjective: still weak, minimal appetite; but improving no new/worsening symptoms no diarrhea, no nausea/vomiting, no dysuria ROS: A complete review of systems was performed and is negative except as mentioned above Physical Exam: Gen: NAD, AOx3, fatigued appearing HEENT: normal conjunctiva, sclera anicteric CV: regular rate & rhythm, no edema Pulm: non-labored respirations, clear bilaterally Abd: soft, non-tender, non-distended Neuro: normal speech, normal affect, moves all extremities vitals reviewed Problem List Acute pyelonephritis Sepsis secondary to e.coli bacteremia HTN HLD Cultures Blood: 2 organisms. 1: unidentified, 2.: GNR - e.coli, sensitivities reviewed; continue levaquin Urine: mixed pascual will need 14 days total course of antibiotics ID consulted repeat blood culturel without growth dc IV fluids antiemetics, pain meds as needed diet as tolerated leukocytosis resolved; afebrile Code: Full Dispo: home, likely tomorrow if continued improvement Time Spent Managing Pts Care (In Minutes): 25
[2022-06-04] MEDS ORDERED: Levofloxacin 750mg IV 750 MG/150 ML BAG IV SCH (21:00)
[2022-06-04] MEDS: ATORVASTATIN 20 MG TAB PO SCH (21:00)
[2022-06-05] MEDS: HYDROCODONE/APAP 5/325 MG TAB PO PRN ×3 (04:39→21:24)
[2022-06-05] MEDS: Levofloxacin 750mg IV 750 MG/150 ML BAG IV SCH (06:21)
[2022-06-05 06:44] LABS: Absolute Lymphocytes (CBC) 0.8 K/uL (0.7-4.9); Hematocrit 30.2 % (36.0-45.0); MCV 84.4 fL (80-100); MPV 7.1 fL (7.6-11.3); RBC Red Blood Cell Count 3.58 M/uL (3.86-4.86)
[2022-06-05 06:52] LABS: Magnesium 1.8 mg/dL (1.8-2.4); Phosphorus 3.4 mg/dL (2.5-4.9); Potassium 3.4 mmol/L (3.5-5.1)
[2022-06-05 07:24] LABS: Blood Morphology Comment NOT SEEN (NOT SEEN); Platelet Estimate ADEQ; White Blood Cell Scan OK (OK)
[2022-06-05] MEDS: ASPIRIN EC 81 MG TAB PO SCH (08:01)
[2022-06-05] MEDS: OXYBUTYNIN CHLORIDE 5 MG TAB PO SCH ×3 (08:01→21:00)
[2022-06-05] MEDS: IRON SUPPLEMENT PO SCH (08:01)
[2022-06-05] MEDS: GABAPENTIN 300 MG CAP PO SCH ×2 (08:01→21:00)
[2022-06-05] MEDS: ZENPEP PO SCH ×3 (08:01→21:00)
[2022-06-05] MEDS: PANTOPRAZOLE 40MG TABLET PO SCH (08:02)
[2022-06-05] MEDS: NS KCL 20MEQ 20 MEQ/1,000 ML BAG IV SCH (15:35)
--- NOTE | 2022-06-05 18:28 | PN ---
Subjective: The patient is lying in bed. No new acute event. Chart reviewed. Denies any headache, nausea, vomiting, chest pain, abdominal pain, constipation, or diarrhea. Objective: Vital Signs: Temperature 97, pulse 78, respirations 14, blood pressure 115/59. Laboratory Data: WBC 9.2, hemoglobin 10.3, platelets 280. Chemistry shows BUN of 14, creatinine 0.4 . Blood culture grew E coli, currently on Levaquin. Assessment And Plan: Urosepsis with bacteremia secondary to Escherichia coli. Continue antibiotic f or 10 days, can be switched to oral if no other challenges like diarrhea or nausea vomiting. We will follow the patient closely. NF/MODL Voice ID: [id number] Report ID: [id number]
[2022-06-05] MEDS ORDERED: POTASSIUM CL SA 10 MEQ TAB PO ONE (19:00)
[2022-06-05] MEDS ORDERED: MAGNESIUM SULFATE 1 gm IVPB 1 GM/100 ML BAG IV ONE (19:01)
[2022-06-05] MEDS: ATORVASTATIN 20 MG TAB PO SCH (21:00)
[2022-06-06] MEDS: Levofloxacin 750mg IV 750 MG/150 ML BAG IV SCH (05:10)
[2022-06-06] MEDS: HYDROCODONE/APAP 5/325 MG TAB PO PRN (05:16)
[2022-06-06 05:39] LABS: Potassium 3.1 mmol/L (3.5-5.1)
[2022-06-06] MEDS ORDERED: ONDANSETRON 4 MG/2 ML VIAL IV PRN (08:50)
[2022-06-06] MEDS: ONDANSETRON 4 MG (ODT) TAB PO PRN (08:54)
[2022-06-06] MEDS: OXYBUTYNIN CHLORIDE 5 MG TAB PO SCH ×3 (08:55→21:00)
[2022-06-06] MEDS: ASPIRIN EC 81 MG TAB PO SCH (08:55)
[2022-06-06] MEDS: GABAPENTIN 300 MG CAP PO SCH ×2 (08:56→21:00)
[2022-06-06] MEDS: ZENPEP PO SCH ×3 (08:56→21:00)
[2022-06-06] MEDS: PANTOPRAZOLE 40MG TABLET PO SCH (08:56)
[2022-06-06] MEDS: IRON SUPPLEMENT PO SCH (08:56)
[2022-06-06] MEDS ORDERED: POTASSIUM CL SA 10 MEQ TAB PO ONE (09:00)
--- NOTE | 2022-06-06 16:02 | PN ---
Subjective: The patient is standing up and feels much better today. Denies any chest pain, back marly n, abdominal pain. Had nausea episode earlier today, which has resolved. The patient is currently o n Levaquin, day 3. Denies any fever. Objective: Vital Signs: Temperature 97, pulse 88, respiration 18, blood pressure 146/72. Lungs: Clear to auscultation. Heart: S1, S2. Regular. Abdomen: Soft, nontender. Bowel sounds present. Extremity: No edema. Laboratory Data: Shows WBC 9.2 from yesterday. Kidney function within normal limits. Albumin level of 3. Assessment And Plan: Bacteremia secondary to E coli, most likely secondary to urinary tract infectio n. Currently on Levaquin, continue for 10 days, can be switched to oral on discharge. Monitor for s igns of any infection and fever and WBC trends. Follow up with primary care as outpatient. No other recommendation at this time. NF/MODL Voice ID: [id number] Report ID: [id number]
--- NOTE | 2022-06-06 17:28 | P.PN ---
Date of Service: 06/06/22 Subjective: improving very nauseated this morning, began after antibiotic contributes to IV antibiotic this morning no back pain, no dysuria, urine clear, otherwise was feeling better ROS: A complete review of systems was performed and is negative except as mentioned above Physical Exam: Gen: AOx3, nauseous HEENT: normal conjunctiva, sclera anicteric CV: regular rate & rhythm, no edema Pulm: non-labored respirations, clear bilaterally Abd: soft, non-tender, non-distended Neuro: normal speech, normal affect, moves all extremities vitals reviewed Problem List Acute pyelonephritis Sepsis secondary to e.coli bacteremia HTN HLD Cultures Blood: 2 organisms. 1: unidentified, 2.: GNR - e.coli, sensitivities reviewed; continue levaquin Urine: mixed pascual will need 14 days total course of antibiotics ID consulted repeat blood culture: GNR - within 24hrs of antibiotics trial of PO levaquin in AM, to see if tolerates otherwise will need IV antibiotics /PICC antiemetics, pain meds as needed diet as tolerated leukocytosis resolved; afebrile Code: Full Dispo: home, tomorrow with PO levaquin vs IV/PICC if needed Time Spent Managing Pts Care (In Minutes): 25
[2022-06-06] MEDS: ATORVASTATIN 20 MG TAB PO SCH (21:00)
[2022-06-07 04:56] LABS: Hematocrit 33.8 % (36.0-45.0); MCV 82.6 fL (80-100); MPV 6.6 fL (7.6-11.3); RBC Red Blood Cell Count 4.09 M/uL (3.86-4.86)
[2022-06-07 05:19] LABS: Potassium 2.9 mmol/L (3.5-5.1)
[2022-06-07] MEDS ORDERED: NA CHLORIDE 0.9% 250 ML ONE (06:37)
[2022-06-07] MEDS: levoFLOXacin 750 MG TAB PO SCH ×2 (06:45→09:00)
[2022-06-07] MEDS ORDERED: POTASSIUM CL SA 10 MEQ TAB PO ONE (06:45)
[2022-06-07] MEDS ORDERED: KCL 20 MEQ/100 mL IVPB 20 MEQ/100 ML BAG IV SCH (07:00)
[2022-06-07] MEDS: KCL 20 MEQ/100 mL IVPB 20 MEQ/100 ML BAG IV SCH ×2 (07:28→09:34)
[2022-06-07] MEDS: IRON SUPPLEMENT PO SCH (09:00)
[2022-06-07] MEDS: GABAPENTIN 300 MG CAP PO SCH (09:00)
[2022-06-07] MEDS: ZENPEP PO SCH ×2 (09:00→14:00)
[2022-06-07] MEDS: OXYBUTYNIN CHLORIDE 5 MG TAB PO SCH ×2 (09:00→14:00)
[2022-06-07] MEDS: PANTOPRAZOLE 40MG TABLET PO SCH (09:00)
[2022-06-07] MEDS: ASPIRIN EC 81 MG TAB PO SCH (09:00)
[2022-06-07 13:15] VITALS: BP 137/73; TEMP 97.1
[2022-06-07 17:32] VITALS: O2SAT 95
--- NOTE | 2022-06-17 12:29 | P.DS ---
Admission Date: 06/03/22 Discharge Date: 06/07/22 Primary Care Provider: Mac Disposition: ROUTINE DISCHARGE Discharge Condition: GOOD Reason for Admission: UTI, Dehydration Brief History of Present Illness: 71 year old female with past medical history of hypertension and hyperlipidemia who presented to the ED with complaints of nausea, vomiting, and back pain. Patient reports that her symptoms began about 3 days ago, and she ended up having a syncopal episode last night. She states that her blood pressure does run low chronically but gets lower when she is sick. Her labs are significant for potassium 3.1, BUN 27, WBC 15 with left shift, urine positive for UTI. COVID/flu negative. She was initially febrile and tachycardic, but have since resolved. She was given levaquin, tylenol, and fluids in the ED. Hospital Course: Problem List Acute pyelonephritis Sepsis secondary to e.coli bacteremia HTN HLD Patient presented with nausea/vomiting and back pain. Found to have a urinary tract infection - acute pyelonephritis. Blood culture grew e.coli. Urine culture with mixed pascual. Her symptoms improved - tolerating diet, ambulating, afebrile, and leukocytosis resolved. Sensitivities were reviewed, Infectious disease team was consulted, and patient was deemed stable for discharge home, to complete a total of 14 days of levaquin, with 9 remaining days. Follow up: PCP within 1 week Vital Signs/Physical Exam: Temp Pulse Resp BP Pulse Ox 97.1 F 90 18 137/73 98 06/07/22 12:00 06/07/22 12:00 06/07/22 12:00 06/07/22 12:00 06/07/22 12:00 Physical Exam: Gen: AOx3, nauseous HEENT: normal conjunctiva, sclera anicteric CV: regular rate & rhythm, no edema Pulm: non-labored respirations, clear bilaterally Abd: soft, non-tender, non-distended Neuro: normal speech, normal affect, moves all extremities Laboratory Data at Discharge: WBC 7.90 K/uL (4.3-10.9) 06/07/22 04:40 Hgb 11.7 g/dL (12.0-15.0) L 06/07/22 04:40 Hct 33.8 % (36.0-45.0) L 06/07/22 04:40 Plt Count 374 K/uL (152-406) 06/07/22 04:40 PT 13.3 SECONDS (9.5-12.5) H 06/02/22 14:29 INR 1.21 06/02/22 14:29 Sodium 138 mmol/L (136-145) 06/07/22 04:40 Potassium 3.8 mmol/L (3.5-5.1) D 06/07/22 13:27 BUN 9 mg/dL (7-18) 06/07/22 04:40 Creatinine 0.48 mg/dL (0.55-1.3) L 06/07/22 04:40 Glucose 93 mg/dL (74-106) 06/07/22 04:40 Phosphorus 3.4 mg/dL (2.5-4.9) 06/05/22 06:15 Magnesium 2.0 mg/dL (1.8-2.4) 06/07/22 04:40 Total Bilirubin 0.7 mg/dL (0.2-1.0) 06/02/22 14:29 AST 22 U/L (15-37) 06/02/22 14:29 ALT 25 U/L (12-78) 06/02/22 14:29 Alkaline Phosphatase 112 U/L (45-117) 06/02/22 14:29 Triglycerides 76 mg/dL (<150) 06/03/22 06:02 Cholesterol 94 mg/dL (<200) 06/03/22 06:02 HDL Cholesterol 36 mg/dL (40-60) L 06/03/22 06:02 Cholesterol/HDL Ratio 2.61 06/03/22 06:02 Home Medications: Gabapentin [Neurontin] 600 mg PO BID 02/07/15 Oxybutynin Chloride [Ditropan*] 5 mg PO TID 02/07/15 Simvastatin [Zocor*] 40 mg PO BEDTIME 02/07/15 Aspirin [Aspirin EC] 1 tab PO DAILY 06/02/22 Iron Supplement 1 tab PO DAILY 06/02/22 Lipase/Protease/Amylase [Zenpep Dr 25,000 Unit Capsule] 25,000 units PO TID 06/02/22 Omeprazole [Prilosec] 40 mg PO DAILY 06/02/22 Vit D3 35541 Iu 1 cap PO DAILY 06/02/22 levoFLOXacin [Levaquin] 750 mg PO DAILY 9 Days #9 tab 06/06/22 Potassium Chloride [K-Tab ER] 20 meq PO DAILY 14 Days #14 tab 06/07/22 ondansetron HCL [Ondansetron HCl] 4 mg PO Q8H PRN #10 tab 06/07/22 New Medications: Potassium Chloride [K-Tab ER] 20 meq PO DAILY 14 Days #14 tab levoFLOXacin [Levaquin] 750 mg PO DAILY 9 Days #9 tab ondansetron HCL [Ondansetron HCl] 4 mg PO Q8H PRN #10 tab PRN Reason: Nausea / Vomiting Physician Discharge Instructions: Patient presented with nausea/vomiting and back pain. Found to have a urinary tract infection - acute pyelonephritis. Blood culture grew e.coli. Urine culture with mixed pascual. Her symptoms improved - tolerating diet, ambulating, afebrile, and leukocytosis resolved. Sensitivities were reviewed, Infectious disease team was consulted, and patient was deemed stable for discharge home, to complete a total of 14 days of levaquin, with 9 remaining days. Follow up: PCP within 1 week Followup: Jennifer Watts DO, DO [Primary Care Provider] - 1 Week Time spent managing pt's care (in minutes): 40
== END 2022-06-07 16:10 | disposition home or self-care (01) | DRG 872 ==
LOC: ER 13:14 → INTOOBSV 18:59 → OBSVTOIN 18:59 → ERHOLD 18:59 → 2ND 20:02 → OBSVTOIN 06-03 17:48
PROVIDERS: ADMIT Internal Medicine; ATTEND Hospitalist
DX: A41.51 Sepsis due to Escherichia coli [E. coli] (principal); N10 Acute pyelonephritis; E44.0 Moderate protein-calorie malnutrition; E78.5 Hyperlipidemia, unspecified; I10 Essential (primary) hypertension; E86.0 Dehydration; E87.6 Hypokalemia; D63.8 Anemia in other chronic diseases classified elsewhere; Z88.0 Allergy status to penicillin; Z79.82 Long term (current) use of aspirin; Z68.30 Body mass index [BMI] 30.0-30.9, adult; Z90.710 Acquired absence of both cervix and uterus; Z79.899 Other long term (current) drug therapy; Z20.822 Contact with and (suspected) exposure to COVID-19
CPT/HCPCS: 0240U; 36415; 71045; 80048; 80061; 80076; 81001; 81003; 83605; 83735; 83880; 84100; 84132; 84443; 84484; 85025; 85027; 85610; 87040; 87077; 87086; 87088; 87186; 87205; 93005; 94760; 96361; 96374; 97116; 99285; G0378; J2405; J3475; J3480; J7030; J7040; J7050; Q0162